=== PATIENT | male | born 1995 | race Caucasian/White ===

== ENCOUNTER 2021-03-12 20:54 | Emergency (ER) | payer OTHER, SELFPAY ==
[2021-03-12 20:49] VITALS: BP 129/88; PULSE 116; RESP 18; TEMP 36.9; O2SAT 98; BMI 32.6
--- NOTE | 2021-03-12 20:55 | CT_ITS ---
PROCEDURE INFORMATION: Exam: CT Head Without Contrast Exam date and time: 03/12/2021 8:55 PM Age: 25 years old Clinical indication: Injury or trauma; Fall; Blunt trauma (contusions or hematomas); With loss of consciousness; Loss of consciousness for 30 minutes or less; Patient HX: Wrestling injury, loc and was in and out for a couple minutes, hit head; Additional info: Injured head by colliding with other wrestler TECHNIQUE: Imaging protocol: Computed tomography of the head without contrast. Radiation optimization: All CT scans at this facility use at least one of these dose optimization techniques: automated exposure control; mA and/or kV adjustment per patient size (includes targeted exams where dose is matched to clinical indication); or iterative reconstruction. COMPARISON: No relevant prior studies available. FINDINGS: Brain: Normal. No hemorrhage. Unremarkable white matter. No mass effect. Cerebral ventricles: No ventriculomegaly. Paranasal sinuses: Visualized sinuses are unremarkable. No fluid levels. Mastoid air cells: Visualized mastoid air cells are well aerated. Bones/joints: Unremarkable. No acute fracture. Soft tissues: Unremarkable. IMPRESSION: No acute intracranial abnormality.
--- NOTE | 2021-03-12 20:56 | CT_ITS ---
PROCEDURE INFORMATION: Exam: CT Cervical Spine Without Contrast Exam date and time: 03/12/2021 8:56 PM Age: 25 years old Clinical indication: Injury or trauma; Fall; Blunt trauma; Patient HX: Wrestling injury, loc and was in and out for a couple minutes, hit head TECHNIQUE: Imaging protocol: Computed tomography images of the cervical spine without contrast. Radiation optimization: All CT scans at this facility use at least one of these dose optimization techniques: automated exposure control; mA and/or kV adjustment per patient size (includes targeted exams where dose is matched to clinical indication); or iterative reconstruction. COMPARISON: No relevant prior studies available. FINDINGS: Vertebrae: No acute fracture. Normal alignment. C2-C3: No significant disc protrusion. No severe spinal canal stenosis. No significant neural foraminal narrowing. C3-C4: No significant disc protrusion. No severe spinal canal stenosis. No significant neural foraminal narrowing. C4-C5: No significant disc protrusion. No severe spinal canal stenosis. No significant neural foraminal narrowing. C5-C6: No significant disc protrusion. No severe spinal canal stenosis. No significant neural foraminal narrowing. C6-C7: No significant disc protrusion. No severe spinal canal stenosis. No significant neural foraminal narrowing. C7-T1: No significant disc protrusion. No severe spinal canal stenosis. No significant neural foraminal narrowing. Soft tissues: Unremarkable. Lungs: Lung apices are normal. IMPRESSION: No acute findings.
--- NOTE | 2021-03-12 20:58 | [facility].EDNECK ---
ED Disposition Clinical Impression: Concussion without loss of consciousness Qualifiers: Encounter type: initial encounter Qualified Code(s): S06.0X0A - Concussion without loss of consciousness, initial encounter Disposition: Home, Self-Care Condition on Discharge: Good Instructions: DI for Concussion Additional Instructions: fluids and see pcp for follow up with leandraenol - Critical Care Critical Care Time: No Attestation: On , the high probability of a clinically significant, sudden or life threatening deterioration of the following system(s) required my full and direct attention, intervention and personal management. The time I documented below is in addition to time spent performing reported procedures but includes the following listed in this critical care notation. Medical Decision Making - Medical Records Medical records reviewed: Yes: I reviewed the patient's medical records. - Enrique Inquiry Pt receiving controlled substance: No Vital Signs: 03/12/21 20:49 03/12/21 22:08 Temperature 98.5 F Temperature Source Oral Pulse Rate 91 H Pulse Rate [Right Brachial] 116 H Respiratory Rate 18 Blood Pressure 132/88 Blood Pressure [Right Arm] 129/88 Blood Pressure Mean [Right Arm] 101 Blood Pressure Source [Right Arm] Automatic Cuff Blood Pressure Position [Right Arm] Sitting 02 Sat by Pulse Oximetry 98 98 Oxygen Delivery Method Room Air - Lab Data Lab results reviewed: Yes: I reviewed the patient's lab results. Lab Results 03/12/21 20:50: WBC 11.9 H, RBC 5.66, Hgb 17.2, Hct 48.7, MCV 85.9, MCH 30.3, MCHC 35.3, RDW 12.9, Plt Count 340, MPV 8.3, Neut % (Auto) 76.4, Lymph % (Auto) 17.6, [place] % (Auto) 5.0, Eos % (Auto) 0.4, Baso % (Auto) 0.6, Neut # (Auto) 9.1 H, Lymph # (Auto) 2.1, [place] # (Auto) 0.6, Eos # (Auto) 0.1, Baso # (Auto) 0.1 03/12/21 20:50: Sodium 140, Potassium 3.6, Chloride 104, Carbon Dioxide 18 L, Anion Gap 21.6 H, BUN 21 H, Creatinine 1.60 H, Estimated Creat Clear 147, Estimated GFR 54 L, Est GFR ( Amer) 65, Glucose 138 H, Calcium 10.6 H, Total Bilirubin 3.4 H, AST 42, ALT 47, Alkaline Phosphatase 97, Total Protein 9.5 H, Albumin 5.8 H, Globulin 3.7 H, Albumin/Globulin Ratio 1.6 Result diagrams: 03/12/21 20:50 03/12/21 20:50 - CT Data CT Scan: Head, C-Spine Time Received: 22:[address] Reviewed: Yes: I have viewed the radiologist's interpretation Preliminary Findings: No Fracture Seen Medical Decision Narrative: stable exam and neg xrays Neck Pain/Injury HPI - General Chief Complaint: Head Injury Stated Complaint: head injury with possible concussion Time Seen by Provider: 03/12/21 20:55 Mode of Arrival: EMS Source of Information: EMS, Medical Record Limitations: Physical Limitations Description of Symptoms (Recalled from ER Triage Doc. by RN): ems reports that patient was in an amateur wrestling match and hit his head and lost a small period of time that he can't remember. pt's head struck another wrestler's head. pt is alert, oriented, able to answer questions but has faulty memory during the time period he is discussing. history of concussions in the past, but denies any in the last 3 months. no other complaints - History of Present Illness HPI Narrative: pt with acute injury to head at wrestling match- no loc but can not remember details - he has no other c/o at this time MD complaint: neck pain Onset (ago): hour(s) Place: sports venue Severity: moderate Context: direct blow Associated symptoms: headache Treatments prior to arrival: none - Related Data Allergies Allergy/AdvReac Type Severity Reaction Status Date / Time Penicillins Allergy Verified 03/12/21 20:55 [facility] History - Hepatitis A Screen Drug use history?: No High risk sexual behaviors?: No History of sexually transmitted infection?: No Currently employed?: No Childcare worker?: No Do you have indoor plumbing?: Yes Do you have electricity?: Yes Attestation statement:
[2021-03-12 21:06] LABS: Basophils # 0.1 K/mm3 (0-0.2); Basophils % 0.6 % (0.1-2.0); Eosinophils # 0.1 K/mm3 (0.0-0.4); Eosinophils % 0.4 % (0.1-12.0); Hematocrit 48.7 % (42.0-52.0); Hemoglobin 17.2 g/dL (14.1-18.0); Lymphocytes # 2.1 K/mm3 (0.7-4.5); Lymphocytes % 17.6 % (10-50); Mean Corpuscular HGB Conc 35.3 g/dL (31.8-35.4); Mean Corpuscular Hemoglobin 30.3 pg (27.0-31.2); Mean Corpuscular Volume 85.9 fl (80-94); Mean Platelet Volume 8.3 fl (7.4-10.4); Monocytes # 0.6 K/mm3 (0.1-1.0); Neutrophils # 9.1 K/mm3 (1.8-7.8); Neutrophils % 76.4 % (37.0-80.0); Platelet Count 340 K/mm3 (142-424); Red Blood Count 5.66 M/mm3 (4.60-6.20); Red Cell Distribution Width 12.9 % (11.5-17.5); White Blood Count 11.9 K/mm3 (4.8-10.8)
[2021-03-12 21:15] LABS: Alanine Aminotransferase 47 U/L (12-78); Albumin Level 5.8 g/dl (3.5-5.0); Albumin/Globulin Ratio 1.6 (1.1-1.8); Alkaline Phosphatase 97 U/L (38-126); Anion Gap 21.6 mEq/L (5-15); Aspartate Amino Transferase 42 U/L (17-59); Bilirubin,Total 3.4 mg/dl (0.2-1.3); Blood Urea Nitrogen 21 mg/dl (9-20); Calcium 10.6 mg/dl (8.4-10.2); Carbon Dioxide 18 mmol/L (22.0-30.0); Chloride 104 mmol/L (98-107); Creatinine Clearance Estimated 147 mL/min (50-200); Estimated Glomerular Filt Rate 54 ml/min (>60); GFR (African American) 65 ML/MIN (>60); Globulin 3.7 g/dL (1.3-3.2); Glucose 138 mg/dl (74-100); Potassium 3.6 mmoL/L (3.5-5.1); Sodium 140 mmol/L (136-145); Total Protein,Serum 9.5 g/dl (6.3-8.2)
[2021-03-12 22:08] VITALS: BP 132/88; PULSE 91; O2SAT 98
[2021-03-12 22:19] VITALS: BP 132/88; PULSE 96; RESP 16; TEMP 36.9; O2SAT 98
== END 2021-03-12 22:21 | disposition home or self-care (01) ==
PROVIDERS: Emergency Provider Emergency Medicine
DX: S06.0X0A Concussion without loss of consciousness, initial encounter (principal); W50.0XXA Accidental hit or strike by another person, initial encounter; Y92.89 Other specified places as the place of occurrence of the external cause
CPT/HCPCS: 70450; 72125; 80053; 85025; 99282